=== PATIENT | female | born 1940 | race Caucasian/White ===

== ENCOUNTER 2024-11-01 13:05 | Inpatient (IN) | payer MEDICARE, OTHER ==
[2024-11-01] MEDS ORDERED: Sodium Chloride 0.9% 10 ML Syringe FLUSH PRN (13:20)
[2024-11-01 14:16] LABS: BASOPHILS ABSOLUTE AUTO 0.1 K/mm3 (0.0-0.2); BASOPHILS PERCENT AUTO 0.4 % (0.0-1.0); EOSINOPHILS ABSOLUTE AUTO 0.1 K/mm3 (0.0-0.4); EOSINOPHILS PERCENT AUTO 0.4 % (0.0-6.0); HEMATOCRIT 32.3 % (37.0-47.0); HEMOGLOBIN 10.8 gm/dl (12.0-16.0); IMMATURE GRAN ABSOLUTE AUTO 0.08 K/mm3 (0.00-0.05); IMMATURE GRAN PERCENT AUTO 0.6 % (0.0-0.4); LYMPHOCYTES ABSOLUTE AUTO 1.6 K/mm3 (1.0-4.8); LYMPHOCYTES PERCENT AUTO 12.7 % (24.0-44.0); MEAN CORPUSCULAR HEMOGLOBIN 30.9 pg (28.0-32.0); MEAN CORPUSCULAR HGB CONC 33.4 g/dl (32.0-36.0); MEAN CORPUSCULAR VOLUME 92.3 fl (83.0-99.0); MEAN PLATELET VOLUME 9.3 fl (9.4-12.3); MONOCYTES ABSOLUTE AUTO 1.1 K/mm3 (0.0-0.8); MONOCYTES PERCENT AUTO 8.3 % (0.0-8.0); NEUTROPHILS PERCENT AUTO 77.6 % (41.0-71.0); PLATELET COUNT,PLT 329 K/mm3 (150-400); WHITE BLOOD CELL COUNT,WBC 12.91 K/mm3 (3.9-11.3)
[2024-11-01] MEDS: HYDROmorphone 0.5 MG/0.5 ML Syringe IVPUSH ONE (14:37)
[2024-11-01] MEDS: Famotidine 20 MG/2 ML SDV IVPUSH ONE (14:38)
[2024-11-01] MEDS: Sodium Chloride 0.9% 10 ML Syringe FLUSH PRN (14:46)
[2024-11-01] MEDS: Iopamidol 612 MG/ML 100 ML Bottle IVPUSH ONE (14:47)
[2024-11-01 14:54] LABS: A/G RATIO 0.7 (1-2); ALANINE AMINOTRANSFERASE,ALT 28 U/L (14-59); ALBUMIN 3.2 g/dl (3.4-5.0); ALKALINE PHOSPHATASE 75 U/L (46-116); ANION GAP 14.3 (5-15); ASPARTATE AMNIOTRANSFERASE,AST 29 U/L (15-37); BILIRUBIN TOTAL 0.3 mg/dL (0.2-1.0); BLOOD UREA NITROGEN,BUN 16 mg/dL (7-18); C-REACTIVE PROTEIN 0.93 mg/dL (<0.30); CALCIUM 8.9 mg/dL (8.5-10.1); CARBON DIOXIDE,CO2 25 mEq/L (21-32); CHLORIDE,CL 105 mEq/L (98-107); ESTIMATED GFR 56 mL/min (>60); GLUCOSE RANDOM 181 mg/dL (70-99); LIPASE 44 U/L (16-77); MAGNESIUM 1.9 mg/dL (1.8-2.4); POTASSIUM,K 3.3 mEq/L (3.5-5.1); PROTEIN TOTAL,TP 7.5 g/dl (6.4-8.2); SODIUM,NA 141 mEq/L (136-145); TROPONIN I HIGH SENSITIVITY 7 pg/mL (<=51)
[2024-11-01] MEDS: Metoclopramide 10 MG/2 ML SDV IVPUSH ONE (15:54)
[2024-11-01] MEDS: Benzocaine 20% Topical Spray UD MUCMEM ONE (15:56)
[2024-11-01] MEDS: Piperacillin/Tazobactam 4.5 GM in Sodium Chloride 0.9% 100 ML IV SCH (15:57)
[2024-11-01] MEDS: Lactated Ringers 1,000 ML IV SCH (15:57)
[2024-11-01] MEDS: Factor IX Complex Human 500 UNIT VIAL IV ONE (16:54)
[2024-11-01] MEDS: Factor IX Complex Human 500 UNIT ONE (17:27)
[2024-11-01] MEDS: Factor IX Complex Human 1,500 UNIT ONE (17:27)
[2024-11-01] MEDS ORDERED: Propofol 200 MG/20 ML SDV ONE ×2 (17:39→17:49)
[2024-11-01] MEDS ORDERED: fentaNYL 250 MCG/5 ML SDV ONE (17:40)
[2024-11-01] MEDS ORDERED: Ondansetron 4 MG/2 ML SDV ONE (17:41)
[2024-11-01] MEDS ORDERED: Dexamethasone 4 MG/ML 5 ML MDV ONE (17:41)
[2024-11-01] MEDS ORDERED: dexmedeTOMIDine HCl 200 MCG/2 ML SDV ONE (17:41)
[2024-11-01] MEDS ORDERED: Lactated Ringers 1,000 ML IV ONE (18:00)
[2024-11-01] MEDS ORDERED: Succinylcholine 200 MG/10 ML MDV ONE (18:04)
[2024-11-01] MEDS ORDERED: Rocuronium 50 MG/5 ML Vial ONE (18:30)
[2024-11-01] MEDS ORDERED: ePHEDrine 50 MG/ML SDV ONE (18:46)
[2024-11-01] MEDS ORDERED: Sugammadex Sodium 200 MG/2 ML VIAL IV ONE (19:02)
[2024-11-01] MEDS ORDERED: Ropivacaine 0.5% 5 MG/ML 30 ML SDV ONE (19:04)
[2024-11-01] MEDS ORDERED: Lactated Ringers 1,000 ML ONE (19:07)
[2024-11-01] MEDS ORDERED: Naloxone 0.4 MG/ML SDV IVPUSH PRN (20:04)
[2024-11-01] MEDS ORDERED: Morphine 4 MG/ML Syringe IVPUSH PRN (20:06)
[2024-11-01] MEDS ORDERED: Ondansetron 4 MG/2 ML SDV IVPUSH PRN (20:09)
[2024-11-02 04:26] LABS: HEMATOCRIT 34.7 % (37.0-47.0); HEMOGLOBIN 11.8 gm/dl (12.0-16.0); MEAN CORPUSCULAR HEMOGLOBIN 31.3 pg (28.0-32.0); MEAN PLATELET VOLUME 9.6 fl (9.4-12.3); PLATELET COUNT,PLT 316 K/mm3 (150-400); RED BLOOD CELL COUNT 3.77 M/mm3 (4.10-5.30)
[2024-11-02 04:58] LABS: A/G RATIO 0.7 (1-2); ALANINE AMINOTRANSFERASE,ALT 20 U/L (14-59); ALBUMIN 2.5 g/dl (3.4-5.0); ALKALINE PHOSPHATASE 56 U/L (46-116); ASPARTATE AMNIOTRANSFERASE,AST 28 U/L (15-37); BILIRUBIN TOTAL 0.4 mg/dL (0.2-1.0); BLOOD UREA NITROGEN,BUN 15 mg/dL (7-18); BUN/CREATININE RATIO 18.8 (14-18); CALCIUM 8.2 mg/dL (8.5-10.1); CARBON DIOXIDE,CO2 24 mEq/L (21-32); CHLORIDE,CL 106 mEq/L (98-107); CREATININE 0.8 mg/dL (0.55-1.02); ESTIMATED GFR 74 mL/min (>60); GLUCOSE RANDOM 170 mg/dL (70-99); MAGNESIUM 1.6 mg/dL (1.8-2.4); PROTEIN TOTAL,TP 6.3 g/dl (6.4-8.2); SODIUM,NA 140 mEq/L (136-145)
[2024-11-02] MEDS: Metoprolol Tartrate 5 MG/5 ML SDV IVPUSH PRN (06:20)
[2024-11-02] MEDS: Magnesium Sulf/Wat 2 GM/50 mL 2 GM in Premix Bag 1 BAG IV ONE (07:54)
[2024-11-02] MEDS: Sodium Chloride 0.9% 500 ML IV ONE (07:54)
[2024-11-02] MEDS: Pantoprazole 40 MG Vial IVPUSH SCH (07:55)
[2024-11-02] MEDS: Morphine 2 MG/ML SYRINGE IVPUSH PRN (07:56)
[2024-11-02] MEDS: hydrALAZINE 20 MG/ML SDV IVPUSH PRN (08:52)
[2024-11-02] MEDS ORDERED: 50% Dextrose in Water 50 ML Syringe IVPUSH PRN (12:35)
[2024-11-02] MEDS ORDERED: Melatonin 3 MG Tab PO PRN (12:40)
[2024-11-02] MEDS ORDERED: LORazepam 2 MG/ML SDV IV PRN (12:40)
[2024-11-02] MEDS: Heparin Sodium 5,000 Units/ML Vial SUBCUT SCH (12:58)
[2024-11-02] MEDS: Insulin Lispro 100 Unit/ML 3 ML KwikPen SUBCUT SCH (16:11)
[2024-11-03] MEDS: Labetalol 100 MG/20 ML MDV IVPUSH PRN (00:11)
[2024-11-03 05:42] LABS: BASOPHILS PERCENT AUTO 0.1 % (0.0-1.0); EOSINOPHILS PERCENT AUTO 0.1 % (0.0-6.0); HEMATOCRIT 31.9 % (37.0-47.0); IMMATURE GRAN ABSOLUTE AUTO 0.09 K/mm3 (0.00-0.05); IMMATURE GRAN PERCENT AUTO 0.5 % (0.0-0.4); LYMPHOCYTES ABSOLUTE AUTO 1.7 K/mm3 (1.0-4.8); MEAN CORPUSCULAR HEMOGLOBIN 30.7 pg (28.0-32.0); MEAN CORPUSCULAR HGB CONC 34.5 g/dl (32.0-36.0); MEAN CORPUSCULAR VOLUME 89.1 fl (83.0-99.0); MEAN PLATELET VOLUME 10.3 fl (9.4-12.3); MONOCYTES ABSOLUTE AUTO 1.2 K/mm3 (0.0-0.8); MONOCYTES PERCENT AUTO 7.1 % (0.0-8.0); NEUTROPHILS ABSOLUTE AUTO 13.8 K/mm3 (1.8-7.7); NEUTROPHILS PERCENT AUTO 82.2 % (41.0-71.0); PLATELET COUNT,PLT 297 K/mm3 (150-400); RED BLOOD CELL COUNT 3.58 M/mm3 (4.10-5.30); WHITE BLOOD CELL COUNT,WBC 16.79 K/mm3 (3.9-11.3)
[2024-11-03 05:54] LABS: A/G RATIO 0.6 (1-2); ALBUMIN 2.2 g/dl (3.4-5.0); ANION GAP 9.9 (5-15); BILIRUBIN TOTAL 0.5 mg/dL (0.2-1.0); BUN/CREATININE RATIO 23.8 (14-18); C-REACTIVE PROTEIN 15.69 mg/dL (<0.30); CALCIUM 8.3 mg/dL (8.5-10.1); CREATININE 0.8 mg/dL (0.55-1.02); EST CRCL DRUG DOSING (CG) 40.6 mL/min; MAGNESIUM 1.8 mg/dL (1.8-2.4); PHOSPHORUS 3.5 mg/dL (2.6-4.7); POTASSIUM,K 3.9 mEq/L (3.5-5.1); PROTEIN TOTAL,TP 5.8 g/dl (6.4-8.2)
[2024-11-03] MEDS: Diltiazem 180 MG Cap.CD PO SCH (08:00)
[2024-11-03] MEDS: Sennosides/Docusate Sodium 50-8.6 MG Tab PO PRN (08:00)
[2024-11-03] MEDS: Dextrose 5%-0.45% NaCl 1,000 ML IV SCH (08:51)
[2024-11-03] MEDS: hydrALAZINE 20 MG/ML SDV IVPUSH PRN (10:03)
[2024-11-03] MEDS: Benzocaine 20% Oral Spray 59.2 ML Canister MUCMEM PRN (18:01)
[2024-11-04 05:33] LABS: BASOPHILS PERCENT AUTO 0.2 % (0.0-1.0); EOSINOPHILS ABSOLUTE AUTO 0.1 K/mm3 (0.0-0.4); EOSINOPHILS PERCENT AUTO 0.4 % (0.0-6.0); HEMATOCRIT 30.3 % (37.0-47.0); HEMOGLOBIN 10.6 gm/dl (12.0-16.0); IMMATURE GRAN ABSOLUTE AUTO 0.05 K/mm3 (0.00-0.05); IMMATURE GRAN PERCENT AUTO 0.4 % (0.0-0.4); LYMPHOCYTES ABSOLUTE AUTO 1.3 K/mm3 (1.0-4.8); LYMPHOCYTES PERCENT AUTO 10.4 % (24.0-44.0); MEAN CORPUSCULAR VOLUME 88.6 fl (83.0-99.0); MONOCYTES ABSOLUTE AUTO 0.9 K/mm3 (0.0-0.8); MONOCYTES PERCENT AUTO 7.2 % (0.0-8.0); NEUTROPHILS ABSOLUTE AUTO 10.4 K/mm3 (1.8-7.7); NEUTROPHILS PERCENT AUTO 81.4 % (41.0-71.0); PLATELET COUNT,PLT 291 K/mm3 (150-400); RED BLOOD CELL COUNT 3.42 M/mm3 (4.10-5.30); WHITE BLOOD CELL COUNT,WBC 12.71 K/mm3 (3.9-11.3)
[2024-11-04 05:58] LABS: A/G RATIO 0.6 (1-2); ALBUMIN 2.1 g/dl (3.4-5.0); BILIRUBIN TOTAL 0.5 mg/dL (0.2-1.0); BUN/CREATININE RATIO 18.8 (14-18); C-REACTIVE PROTEIN 11.27 mg/dL (<0.30); CALCIUM 8.1 mg/dL (8.5-10.1); CREATININE 0.8 mg/dL (0.55-1.02); EST CRCL DRUG DOSING (CG) 40.14 mL/min; PROTEIN TOTAL,TP 5.9 g/dl (6.4-8.2)
[2024-11-04] MEDS: Potassium Chloride 10 MEQ in Premix Bag 1 BAG IV SCH (08:09)
[2024-11-04] MEDS: Apixaban 2.5 MG Tab PO SCH (08:45)
[2024-11-04] MEDS: Sodium Chloride 0.9% 1,000 ML IV SCH (11:19)
[2024-11-05 05:35] LABS: BASOPHILS PERCENT AUTO 0.1 % (0.0-1.0); EOSINOPHILS ABSOLUTE AUTO 0.2 K/mm3 (0.0-0.4); EOSINOPHILS PERCENT AUTO 1.9 % (0.0-6.0); HEMATOCRIT 29.4 % (37.0-47.0); HEMOGLOBIN 10.3 gm/dl (12.0-16.0); IMMATURE GRAN ABSOLUTE AUTO 0.05 K/mm3 (0.00-0.05); IMMATURE GRAN PERCENT AUTO 0.6 % (0.0-0.4); LYMPHOCYTES ABSOLUTE AUTO 1.1 K/mm3 (1.0-4.8); LYMPHOCYTES PERCENT AUTO 12.3 % (24.0-44.0); MEAN CORPUSCULAR HEMOGLOBIN 31.2 pg (28.0-32.0); MEAN CORPUSCULAR VOLUME 89.1 fl (83.0-99.0); MEAN PLATELET VOLUME 10.1 fl (9.4-12.3); MONOCYTES ABSOLUTE AUTO 0.8 K/mm3 (0.0-0.8); MONOCYTES PERCENT AUTO 8.7 % (0.0-8.0); NEUTROPHILS ABSOLUTE AUTO 6.6 K/mm3 (1.8-7.7); NEUTROPHILS PERCENT AUTO 76.4 % (41.0-71.0); PLATELET COUNT,PLT 308 K/mm3 (150-400); WHITE BLOOD CELL COUNT,WBC 8.63 K/mm3 (3.9-11.3)
[2024-11-05 06:10] LABS: A/G RATIO 0.6 (1-2); ALBUMIN 2.1 g/dl (3.4-5.0); ANION GAP 12.8 (5-15); BILIRUBIN TOTAL 0.4 mg/dL (0.2-1.0); BUN/CREATININE RATIO 8.6 (14-18); C-REACTIVE PROTEIN 7.87 mg/dL (<0.30); CREATININE 0.7 mg/dL (0.55-1.02); EST CRCL DRUG DOSING (CG) 45.87 mL/min; POTASSIUM,K 2.8 mEq/L (3.5-5.1); PROTEIN TOTAL,TP 5.8 g/dl (6.4-8.2)
[2024-11-05 08:48] LABS: MAGNESIUM 1.7 mg/dL (1.8-2.4); PHOSPHORUS 2.4 mg/dL (2.6-4.7)
[2024-11-05] MEDS: Potassium Chloride 10 MEQ in Premix Bag 1 BAG IV SCH (09:30)
[2024-11-05] MEDS: Magnesium Sulf/Wat 2 GM/50 mL 2 GM in Premix Bag 1 BAG IV ONE (09:47)
[2024-11-05] MEDS: Potassium Chloride 20 MEQ Tab.ER PO SCH (10:44)
[2024-11-05] MEDS: Phosphorus #1 250 MG Tab PO ONE (10:44)
[2024-11-05] MEDS ORDERED: Potassium Phosphates 30 MMOLE in Sodium Chloride 0.9% 500 ML IV ONE (12:00)
[2024-11-06 04:31] LABS: BASOPHILS PERCENT AUTO 0.2 % (0.0-1.0); EOSINOPHILS ABSOLUTE AUTO 0.3 K/mm3 (0.0-0.4); EOSINOPHILS PERCENT AUTO 3.2 % (0.0-6.0); HEMOGLOBIN 10.3 gm/dl (12.0-16.0); IMMATURE GRAN ABSOLUTE AUTO 0.05 K/mm3 (0.00-0.05); IMMATURE GRAN PERCENT AUTO 0.5 % (0.0-0.4); LYMPHOCYTES ABSOLUTE AUTO 1.2 K/mm3 (1.0-4.8); MEAN CORPUSCULAR HEMOGLOBIN 30.6 pg (28.0-32.0); MEAN CORPUSCULAR HGB CONC 34.3 g/dl (32.0-36.0); MEAN PLATELET VOLUME 9.7 fl (9.4-12.3); MONOCYTES PERCENT AUTO 10.5 % (0.0-8.0); NEUTROPHILS ABSOLUTE AUTO 6.9 K/mm3 (1.8-7.7); NEUTROPHILS PERCENT AUTO 72.6 % (41.0-71.0); PLATELET COUNT,PLT 342 K/mm3 (150-400); RED BLOOD CELL COUNT 3.37 M/mm3 (4.10-5.30); WHITE BLOOD CELL COUNT,WBC 9.54 K/mm3 (3.9-11.3)
[2024-11-06 05:02] LABS: A/G RATIO 0.6 (1-2); ALBUMIN 2.1 g/dl (3.4-5.0); ANION GAP 11.6 (5-15); BILIRUBIN TOTAL 0.3 mg/dL (0.2-1.0); BUN/CREATININE RATIO 8.8 (14-18); C-REACTIVE PROTEIN 5.99 mg/dL (<0.30); CALCIUM 7.7 mg/dL (8.5-10.1); CREATININE 0.8 mg/dL (0.55-1.02); EST CRCL DRUG DOSING (CG) 40.14 mL/min; POTASSIUM,K 3.6 mEq/L (3.5-5.1); PROTEIN TOTAL,TP 5.9 g/dl (6.4-8.2)
== END 2024-11-07 10:08 | disposition home or self-care (01) | DRG 336 ==
LOC: JD.ED 13:05 → JD.SDS 16:45 → JD.ICU 19:40
PROVIDERS: ADMIT Surgery; ATTEND Family Medicine
PROC: 0DN80ZZ Release Small Intestine, Open Approach (ICD-10-PCS; principal; 2024-11-01 18:25)
DX: K56.609 Unspecified intestinal obstruction, unspecified as to partial versus complete obstruction (principal); K56.50 Intestinal adhesions [bands], unspecified as to partial versus complete obstruction; K91.89 Other postprocedural complications and disorders of digestive system; I10 Essential (primary) hypertension; K63.89 Other specified diseases of intestine; E83.39 Other disorders of phosphorus metabolism; I48.0 Paroxysmal atrial fibrillation; R55 Syncope and collapse; R94.31 Abnormal electrocardiogram [ECG] [EKG]; E87.6 Hypokalemia; E83.42 Hypomagnesemia; Z79.01 Long term (current) use of anticoagulants; Z90.710 Acquired absence of both cervix and uterus; Z95.0 Presence of cardiac pacemaker; Z90.49 Acquired absence of other specified parts of digestive tract; Z98.890 Other specified postprocedural states; K44.9 Diaphragmatic hernia without obstruction or gangrene; K56.7 Ileus, unspecified
CPT/HCPCS: 36415; 71045; 74177; 80053; 83605; 83690; 83735; 83880; 84484; 85025; 86140; 86850; 86900; 86901; 86922; 93005; 96365; 96366; 96375; 99285; A9270; J0330; J1100; J2405; J2543; J2704 ×2; J2765; J2795; J3010; J7120 ×3; J7168; Q9967; 00840; 64488; 82947; 84100; 84132; 85027; 85730; 93010; 93306; 97110-GP; 97112-GP; 97116-GP; 97161-GP; 97166-GO; 97530-GP; 97535-GO; 99100; 99140; J0360; J1644; J1920; J2270; J2470; J3475; J3480; J3490; J7030; J7799

== ENCOUNTER 2024-11-08 09:06 | Emergency (ER) | payer MEDICARE ==
[2024-11-08 10:06] LABS: BASOPHILS PERCENT AUTO 0.3 % (0.0-1.0); EOSINOPHILS ABSOLUTE AUTO 0.2 K/mm3 (0.0-0.4); EOSINOPHILS PERCENT AUTO 2.4 % (0.0-6.0); HEMATOCRIT 31.8 % (37.0-47.0); HEMOGLOBIN 10.7 gm/dl (12.0-16.0); IMMATURE GRAN ABSOLUTE AUTO 0.09 K/mm3 (0.00-0.05); LYMPHOCYTES ABSOLUTE AUTO 1.2 K/mm3 (1.0-4.8); LYMPHOCYTES PERCENT AUTO 13.4 % (24.0-44.0); MEAN CORPUSCULAR HEMOGLOBIN 31.2 pg (28.0-32.0); MEAN CORPUSCULAR HGB CONC 33.6 g/dl (32.0-36.0); MONOCYTES PERCENT AUTO 11.2 % (0.0-8.0); NEUTROPHILS ABSOLUTE AUTO 6.3 K/mm3 (1.8-7.7); NEUTROPHILS PERCENT AUTO 71.7 % (41.0-71.0); RED BLOOD CELL COUNT 3.43 M/mm3 (4.10-5.30); WHITE BLOOD CELL COUNT,WBC 8.75 K/mm3 (3.9-11.3)
[2024-11-08 10:12] LABS: MEAN CORPUSCULAR VOLUME 92.7 fl (83.0-99.0); PLATELET COUNT,PLT 422 K/mm3 (150-400)
[2024-11-08 10:14] LABS: A/G RATIO 0.6 (1-2); ALBUMIN 2.5 g/dl (3.4-5.0); ANION GAP 14.1 (5-15); BILIRUBIN TOTAL 0.3 mg/dL (0.2-1.0); BUN/CREATININE RATIO 13.8 (14-18); CALCIUM 8.7 mg/dL (8.5-10.1); CREATININE 0.8 mg/dL (0.55-1.02); EST CRCL DRUG DOSING (CG) 37.01 mL/min; POTASSIUM,K 4.1 mEq/L (3.5-5.1); PROTEIN TOTAL,TP 6.8 g/dl (6.4-8.2)
[2024-11-08] MEDS: Iopamidol 755 Mg/ML 100 ML Bottle IVPUSH ONE (10:34)
[2024-11-08] MEDS: Sodium Chloride 0.9% 10 ML Syringe FLUSH PRN (10:36)
[2024-11-08] MEDS: Sodium Chloride 0.9% 100 ML IV SCH (10:36)
== END 2024-11-08 16:52 | disposition home or self-care (01) ==
LOC: JD.ED 09:06
DX: J90 Pleural effusion, not elsewhere classified (principal); D75.839 Thrombocytosis, unspecified; I48.91 Unspecified atrial fibrillation; I10 Essential (primary) hypertension; Z90.49 Acquired absence of other specified parts of digestive tract; Z79.01 Long term (current) use of anticoagulants; Z79.899 Other long term (current) drug therapy
CPT/HCPCS: 36415; 71275; 80053; 84484; 85025; 93005; 99285; Q9967; 93010; 99284

== ENCOUNTER 2024-11-22 16:56 | Inpatient (IN) | payer MEDICARE ==
[2024-11-22] MEDS ORDERED: Naloxone 0.4 MG/ML SDV IVPUSH PRN (17:16)
[2024-11-22] MEDS: Ondansetron 4 MG/2 ML SDV IVPUSH ONE (17:24)
[2024-11-22] MEDS: Sodium Chloride 0.9% 1,000 ML IV ONE (17:24)
[2024-11-22] MEDS: fentaNYL 100 MCG/2 ML SDV IVPUSH ONE ×2 (17:24→19:07)
[2024-11-22] MEDS: Benzocaine 20% Topical Spray UD MUCMEM ONE (17:25)
[2024-11-22 18:04] LABS: BASOPHILS ABSOLUTE AUTO 0.1 K/mm3 (0.0-0.2); BASOPHILS PERCENT AUTO 0.4 % (0.0-1.0); EOSINOPHILS ABSOLUTE AUTO 0.1 K/mm3 (0.0-0.4); EOSINOPHILS PERCENT AUTO 0.7 % (0.0-6.0); HEMATOCRIT 32.1 % (37.0-47.0); HEMOGLOBIN 10.7 gm/dl (12.0-16.0); IMMATURE GRAN ABSOLUTE AUTO 0.07 K/mm3 (0.00-0.05); IMMATURE GRAN PERCENT AUTO 0.4 % (0.0-0.4); LYMPHOCYTES PERCENT AUTO 6.2 % (24.0-44.0); MEAN CORPUSCULAR HEMOGLOBIN 31.1 pg (28.0-32.0); MEAN CORPUSCULAR HGB CONC 33.3 g/dl (32.0-36.0); MEAN CORPUSCULAR VOLUME 93.3 fl (83.0-99.0); MEAN PLATELET VOLUME 9.1 fl (9.4-12.3); MONOCYTES ABSOLUTE AUTO 1.1 K/mm3 (0.0-0.8); MONOCYTES PERCENT AUTO 6.5 % (0.0-8.0); NEUTROPHILS ABSOLUTE AUTO 14.2 K/mm3 (1.8-7.7); NEUTROPHILS PERCENT AUTO 85.8 % (41.0-71.0); PLATELET COUNT,PLT 525 K/mm3 (150-400); RED BLOOD CELL COUNT 3.44 M/mm3 (4.10-5.30); WHITE BLOOD CELL COUNT,WBC 16.49 K/mm3 (3.9-11.3)
[2024-11-22 18:20] LABS: INR 1.23; PROTHROMBIN TIME 12.9 SECONDS (9.7-12.0)
[2024-11-22 18:23] LABS: A/G RATIO 0.7 (1-2); ALANINE AMINOTRANSFERASE,ALT 30 U/L (14-59); ALBUMIN 3.1 g/dl (3.4-5.0); ALKALINE PHOSPHATASE 91 U/L (46-116); ANION GAP 10.3 (5-15); ASPARTATE AMNIOTRANSFERASE,AST 31 U/L (15-37); BILIRUBIN TOTAL 0.3 mg/dL (0.2-1.0); BLOOD UREA NITROGEN,BUN 13 mg/dL (7-18); BUN/CREATININE RATIO 18.6 (14-18); CALCIUM 8.7 mg/dL (8.5-10.1); CARBON DIOXIDE,CO2 29 mEq/L (21-32); CHLORIDE,CL 100 mEq/L (98-107); CREATININE 0.7 mg/dL (0.55-1.02); ESTIMATED GFR 86 mL/min (>60); GLUCOSE RANDOM 144 mg/dL (70-99); LIPASE 92 U/L (16-77); MAGNESIUM 1.7 mg/dL (1.8-2.4); POTASSIUM,K 4.3 mEq/L (3.5-5.1); PROTEIN TOTAL,TP 7.3 g/dl (6.4-8.2); SODIUM,NA 135 mEq/L (136-145)
[2024-11-22] MEDS: Iopamidol 612 MG/ML 100 ML Bottle IVPUSH ONE (18:49)
[2024-11-22] MEDS: Sodium Chloride 0.9% 10 ML Syringe FLUSH ONE (18:49)
[2024-11-22] MEDS: Sodium Chloride 0.9% 500 ML IV ONE (18:55)
[2024-11-22] MEDS: Metoclopramide 10 MG/2 ML SDV IVPUSH ONE (18:55)
[2024-11-22] MEDS ORDERED: Propofol 200 MG/20 ML SDV ONE (19:59)
[2024-11-22] MEDS ORDERED: fentaNYL 100 MCG/2 ML SDV ONE (20:03)
[2024-11-22] MEDS ORDERED: Succinylcholine 200 MG/10 ML MDV ONE (20:03)
[2024-11-22] MEDS ORDERED: Lactated Ringers 1,000 ML ONE (20:06)
[2024-11-22] MEDS ORDERED: Ondansetron 4 MG/2 ML SDV IV PRN (20:42)
[2024-11-22] MEDS ORDERED: HYDROmorphone 0.5 MG/0.5 ML Syringe IVPUSH PRN ×2 (20:42→21:16)
[2024-11-22] MEDS ORDERED: Ondansetron 4 MG/2 ML SDV IVPUSH PRN (21:16)
[2024-11-22] MEDS ORDERED: fentaNYL 100 MCG/2 ML SDV IVPUSH PRN (21:16)
[2024-11-22] MEDS: Lactated Ringers 1,000 ML IV SCH (22:00)
[2024-11-23 05:42] LABS: BASOPHILS PERCENT AUTO 0.3 % (0.0-1.0); EOSINOPHILS ABSOLUTE AUTO 0.1 K/mm3 (0.0-0.4); EOSINOPHILS PERCENT AUTO 0.8 % (0.0-6.0); HEMATOCRIT 29.7 % (37.0-47.0); IMMATURE GRAN ABSOLUTE AUTO 0.04 K/mm3 (0.00-0.05); IMMATURE GRAN PERCENT AUTO 0.3 % (0.0-0.4); LYMPHOCYTES ABSOLUTE AUTO 1.6 K/mm3 (1.0-4.8); LYMPHOCYTES PERCENT AUTO 13.8 % (24.0-44.0); MEAN CORPUSCULAR HEMOGLOBIN 31.3 pg (28.0-32.0); MEAN CORPUSCULAR HGB CONC 33.7 g/dl (32.0-36.0); MEAN CORPUSCULAR VOLUME 93.1 fl (83.0-99.0); MEAN PLATELET VOLUME 9.3 fl (9.4-12.3); MONOCYTES ABSOLUTE AUTO 1.1 K/mm3 (0.0-0.8); MONOCYTES PERCENT AUTO 9.5 % (0.0-8.0); NEUTROPHILS ABSOLUTE AUTO 8.8 K/mm3 (1.8-7.7); NEUTROPHILS PERCENT AUTO 75.3 % (41.0-71.0); PLATELET COUNT,PLT 499 K/mm3 (150-400); RED BLOOD CELL COUNT 3.19 M/mm3 (4.10-5.30); WHITE BLOOD CELL COUNT,WBC 11.77 K/mm3 (3.9-11.3)
[2024-11-23 05:46] LABS: ANION GAP 7.8 (5-15); BUN/CREATININE RATIO 16.7 (14-18); CALCIUM 8.4 mg/dL (8.5-10.1); CREATININE 0.6 mg/dL (0.55-1.02); EST CRCL DRUG DOSING (CG) 50.72 mL/min; POTASSIUM,K 3.8 mEq/L (3.5-5.1)
[2024-11-23] MEDS: Pantoprazole 40 MG Vial IV SCH (08:20)
[2024-11-23] MEDS ORDERED: Benzocaine 20% Oral Spray 59.2 ML Canister MUCMEM PRN (08:32)
[2024-11-23] MEDS: Apixaban 2.5 MG Tab PO SCH (08:49)
[2024-11-23] MEDS ORDERED: Acetaminophen 325 MG Tab PO PRN (09:42)
[2024-11-23] MEDS ORDERED: oxyCODONE 5 MG Tab PO PRN (09:43)
[2024-11-23] MEDS: Diltiazem 180 MG Cap.CD PO SCH (09:59)
== END 2024-11-24 09:40 | disposition home or self-care (01) | DRG 392 ==
LOC: JD.ED 16:56 → JD.SDS 20:18 → JD.MS 20:19
PROVIDERS: ADMIT Surgery; ATTEND Surgery
PROC: 0DH67UZ Insertion of Feeding Device into Stomach, Via Natural or Artificial Opening (ICD-10-PCS; principal; 2024-11-22 20:00)
DX: K44.0 Diaphragmatic hernia with obstruction, without gangrene (principal); K56.609 Unspecified intestinal obstruction, unspecified as to partial versus complete obstruction; I10 Essential (primary) hypertension; Z95.0 Presence of cardiac pacemaker; Z98.890 Other specified postprocedural states; I48.91 Unspecified atrial fibrillation; Z90.49 Acquired absence of other specified parts of digestive tract; Z79.01 Long term (current) use of anticoagulants; Z90.710 Acquired absence of both cervix and uterus; Z79.899 Other long term (current) drug therapy
CPT/HCPCS: 36415; 43752; 74018; 74177; 80053; 83605; 83690; 83735; 85025; 85610; 86850; 86900; 86901; 96361; 96374; 96375; 96376; 99285; A9270; J0330; J2405; J2704; J2765; J3010 ×3; J7030 ×2; J7120; Q9967; 00731; 71045; 71045-26; 74176; 74176-26; 80048; 94761; J2470

== ENCOUNTER 2025-05-14 13:55 | Emergency (ER) | payer MEDICARE ==
[2025-05-14] MEDS: Acetaminophen/HYDROcodone 325-5 MG Tab PO ONE (14:30)
== END 2025-05-14 16:15 | disposition home or self-care (01) ==
LOC: JD.ED 13:55
DX: M54.17 Radiculopathy, lumbosacral region (principal); I48.91 Unspecified atrial fibrillation; I10 Essential (primary) hypertension; Z79.01 Long term (current) use of anticoagulants; Z79.899 Other long term (current) drug therapy; Z95.0 Presence of cardiac pacemaker; Z86.16 Personal history of COVID-19
CPT/HCPCS: 36415; 73501; 73560; 99283; A9270; J8540; 99284

== ENCOUNTER 2025-08-12 11:28 | Inpatient (IN) | payer MEDICARE ==
[2025-08-12] MEDS: Ondansetron 4 MG/2 ML SDV IVPUSH ONE (12:35)
[2025-08-12] MEDS: Lactated Ringers 1,000 ML IV ONE (12:35)
[2025-08-12] MEDS: Sodium Chloride 0.9% 10 ML Syringe FLUSH PRN ×2 (12:38→13:58)
[2025-08-12 12:57] LABS: BASOPHILS ABSOLUTE AUTO 0.0 K/mm3 (0.0-0.2); BASOPHILS PERCENT AUTO 0.2 % (0.0-1.0); EOSINOPHILS ABSOLUTE AUTO 0.0 K/mm3 (0.0-0.4); EOSINOPHILS PERCENT AUTO 0.0 % (0.0-6.0); IMMATURE GRAN ABSOLUTE AUTO 0.04 K/mm3 (0.00-0.05); IMMATURE GRAN PERCENT AUTO 0.3 % (0.0-0.4); LYMPHOCYTES ABSOLUTE AUTO 0.7 K/mm3 (1.0-4.8); LYMPHOCYTES PERCENT AUTO 5.5 % (24.0-44.0); MEAN PLATELET VOLUME 9.0 fl (9.4-12.3); MONOCYTES ABSOLUTE AUTO 0.8 K/mm3 (0.0-0.8); MONOCYTES PERCENT AUTO 5.8 % (0.0-8.0); NEUTROPHILS ABSOLUTE AUTO 11.4 K/mm3 (1.8-7.7); NEUTROPHILS PERCENT AUTO 88.2 % (41.0-71.0); NRBC ABSOLUTE 0.00 (0.00-0.02); NRBC PERCENT 0.0 % (0.0-0.2); PLATELET COUNT,PLT 422 K/mm3 (150-400); RED BLOOD CELL COUNT 3.82 M/mm3 (4.10-5.30); WHITE BLOOD CELL COUNT,WBC 12.91 K/mm3 (3.9-11.3)
[2025-08-12 13:28] LABS: LACTIC ACID 1.2 mmol/L (0.4-2.0)
[2025-08-12 13:34] LABS: A/G RATIO 0.7 (1-2); ALANINE AMINOTRANSFERASE,ALT 28.0 U/L (14-59); ASPARTATE AMNIOTRANSFERASE,AST 30.0 U/L (15-37); BILIRUBIN TOTAL 0.4 mg/dL (0.2-1.0); BLOOD UREA NITROGEN,BUN 17.0 mg/dL (7-18); CARBON DIOXIDE,CO2 25.0 mEq/L (21-32); CHLORIDE,CL 102.0 mEq/L (98-107); CREATININE 0.6 mg/dL (0.55-1.02); EST CRCL DRUG DOSING (CG) 51.48 mL/min; ESTIMATED GFR 89.0 mL/min (>60); GLUCOSE RANDOM 109.0 mg/dL (70-99); POTASSIUM,K 3.7 mEq/L (3.5-5.1); PROTEIN TOTAL,TP 7.3 g/dl (6.4-8.2); SODIUM,NA 138.0 mEq/L (136-145)
[2025-08-12] MEDS: Iopamidol 612 MG/ML 100 ML Bottle IVPUSH ONE (13:59)
[2025-08-12] MEDS ORDERED: Naloxone 0.4 MG/ML SDV IVPUSH PRN (15:54)
[2025-08-12] MEDS ORDERED: Ketorolac 15 MG/ML SDV IVPUSH PRN (16:01)
[2025-08-12 16:54] LABS: APPEARANCE,URINE CLEAR (Clear); GLUCOSE,URINE NEGATIVE (Negative); OCCULT BLOOD,URINE NEGATIVE (Negative)
[2025-08-12 17:01] LABS: EPITHELIAL CELLS,URINE 0-5 /hpf (0-5)
[2025-08-12] MEDS: Benzocaine 20% Topical Spray UD MUCMEM ONE (17:21)
[2025-08-13 05:39] LABS: BASOPHILS ABSOLUTE AUTO 0.1 K/mm3 (0.0-0.2); BASOPHILS PERCENT AUTO 0.5 % (0.0-1.0); EOSINOPHILS ABSOLUTE AUTO 0.1 K/mm3 (0.0-0.4); EOSINOPHILS PERCENT AUTO 1.1 % (0.0-6.0); IMMATURE GRAN ABSOLUTE AUTO 0.02 K/mm3 (0.00-0.05); IMMATURE GRAN PERCENT AUTO 0.2 % (0.0-0.4); LYMPHOCYTES ABSOLUTE AUTO 1.7 K/mm3 (1.0-4.8); LYMPHOCYTES PERCENT AUTO 15.0 % (24.0-44.0); MEAN PLATELET VOLUME 10.1 fl (9.4-12.3); MONOCYTES ABSOLUTE AUTO 0.9 K/mm3 (0.0-0.8); MONOCYTES PERCENT AUTO 8.0 % (0.0-8.0); NEUTROPHILS ABSOLUTE AUTO 8.3 K/mm3 (1.8-7.7); NEUTROPHILS PERCENT AUTO 75.2 % (41.0-71.0); NRBC ABSOLUTE 0.00 (0.00-0.02); NRBC PERCENT 0.0 % (0.0-0.2); PLATELET COUNT,PLT 381 K/mm3 (150-400); RED BLOOD CELL COUNT 3.40 M/mm3 (4.10-5.30); WHITE BLOOD CELL COUNT,WBC 11.01 K/mm3 (3.9-11.3)
[2025-08-13 05:53] LABS: BLOOD UREA NITROGEN,BUN 15.0 mg/dL (7-18); CARBON DIOXIDE,CO2 23.0 mEq/L (21-32); CHLORIDE,CL 106.0 mEq/L (98-107); CREATININE 0.6 mg/dL (0.55-1.02); EST CRCL DRUG DOSING (CG) 50.52 mL/min; ESTIMATED GFR 89.0 mL/min (>60); GLUCOSE RANDOM 77.0 mg/dL (70-99); POTASSIUM,K 3.6 mEq/L (3.5-5.1); SODIUM,NA 139.0 mEq/L (136-145)
[2025-08-14] MEDS: Diltiazem 180 MG Cap.CD PO SCH (08:18)
[2025-08-14] MEDS: Multivitamins with Minerals/Folic Acid/Lutein/Zeaxanth Tab PO SCH (08:18)
== END 2025-08-14 13:46 | disposition home or self-care (01) | DRG 390 ==
LOC: JD.ED 11:28 → JD.MS 15:45
PROVIDERS: ADMIT Surgery; ATTEND Surgery
DX: K56.609 Unspecified intestinal obstruction, unspecified as to partial versus complete obstruction (principal); K56.699 Other intestinal obstruction unspecified as to partial versus complete obstruction; H91.90 Unspecified hearing loss, unspecified ear; H54.7 Unspecified visual loss; M81.0 Age-related osteoporosis without current pathological fracture; E86.0 Dehydration; I48.91 Unspecified atrial fibrillation; Z90.49 Acquired absence of other specified parts of digestive tract; K44.9 Diaphragmatic hernia without obstruction or gangrene; I10 Essential (primary) hypertension; Z95.0 Presence of cardiac pacemaker; Z86.16 Personal history of COVID-19; Z98.890 Other specified postprocedural states; Z79.899 Other long term (current) drug therapy; Z79.01 Long term (current) use of anticoagulants
CPT/HCPCS: 36415; 71045; 74018; 74177; 80053; 83605; 83690; 83735; 85025; 93005; 96361; 96374; 96375; 99285; J2270; J2405; J7120; Q9967; 74019; 74019-26; 80048; 81001; 87086; 87088; 87186; 93010; 99222; 99232; 99238; A9270-GY; J7030

== ENCOUNTER 2025-08-17 00:03 | Emergency (ER) | payer MEDICARE ==
[2025-08-17] MEDS ORDERED: Sodium Chloride 0.9% 10 ML Syringe FLUSH PRN (00:27)
[2025-08-17] MEDS: Ondansetron 4 MG/2 ML SDV IVPUSH ONE (00:30)
[2025-08-17 00:33] LABS: BASOPHILS ABSOLUTE AUTO 0.0 K/mm3 (0.0-0.2); BASOPHILS PERCENT AUTO 0.2 % (0.0-1.0); EOSINOPHILS ABSOLUTE AUTO 0.1 K/mm3 (0.0-0.4); EOSINOPHILS PERCENT AUTO 0.7 % (0.0-6.0); IMMATURE GRAN ABSOLUTE AUTO 0.09 K/mm3 (0.00-0.05); IMMATURE GRAN PERCENT AUTO 0.6 % (0.0-0.4); LYMPHOCYTES ABSOLUTE AUTO 1.5 K/mm3 (1.0-4.8); LYMPHOCYTES PERCENT AUTO 10.6 % (24.0-44.0); MEAN PLATELET VOLUME 9.1 fl (9.4-12.3); MONOCYTES ABSOLUTE AUTO 0.7 K/mm3 (0.0-0.8); MONOCYTES PERCENT AUTO 4.8 % (0.0-8.0); NEUTROPHILS ABSOLUTE AUTO 12.1 K/mm3 (1.8-7.7); NEUTROPHILS PERCENT AUTO 83.1 % (41.0-71.0); NRBC ABSOLUTE 0.00 (0.00-0.02); NRBC PERCENT 0.0 % (0.0-0.2); PLATELET COUNT,PLT 383 K/mm3 (150-400); RED BLOOD CELL COUNT 4.11 M/mm3 (4.10-5.30); WHITE BLOOD CELL COUNT,WBC 14.51 K/mm3 (3.9-11.3)
[2025-08-17 00:48] LABS: A/G RATIO 0.8 (1-2); ALANINE AMINOTRANSFERASE,ALT 32.0 U/L (14-59); ASPARTATE AMNIOTRANSFERASE,AST 39.0 U/L (15-37); BILIRUBIN TOTAL 0.3 mg/dL (0.2-1.0); BLOOD UREA NITROGEN,BUN 12.0 mg/dL (7-18); CARBON DIOXIDE,CO2 22.0 mEq/L (21-32); CHLORIDE,CL 102.0 mEq/L (98-107); CREATININE 0.8 mg/dL (0.55-1.02); EST CRCL DRUG DOSING (CG) 37.77 mL/min; ESTIMATED GFR 73.0 mL/min (>60); GLUCOSE RANDOM 228.0 mg/dL (70-99); POTASSIUM,K 3.2 mEq/L (3.5-5.1); PROTEIN TOTAL,TP 7.4 g/dl (6.4-8.2); SODIUM,NA 138.0 mEq/L (136-145)
[2025-08-17] MEDS: Iopamidol 612 MG/ML 100 ML Bottle IVPUSH ONE (00:50)
[2025-08-17] MEDS: Sodium Chloride 0.9% 10 ML Syringe FLUSH PRN (00:50)
[2025-08-17] MEDS: Lactated Ringers 1,000 ML IV SCH (03:05)
== END 2025-08-17 03:30 ==
LOC: JD.ED 00:03
DX: K63.89 Other specified diseases of intestine (principal); E86.0 Dehydration; I48.91 Unspecified atrial fibrillation; I10 Essential (primary) hypertension; Z86.16 Personal history of COVID-19; Z90.49 Acquired absence of other specified parts of digestive tract; Z79.01 Long term (current) use of anticoagulants; Z79.899 Other long term (current) drug therapy
CPT/HCPCS: 36415; 74177; 80053; 83605; 83690; 85025; 96361; 96365; 96375; 99285; J2405; J2543; J2765; J7030; J7120; Q9967; J1171